=== PATIENT | male | born 1985 | race Two or more races ===

== ENCOUNTER 2017-05-07 13:46 | Inpatient (IN) | payer OTHER ==
[2017-05-07 17:21] VITALS: BMI 21.9
--- NOTE | 2017-05-07 20:47 | HP ---
Admission ROS [facility] - [facility] Chief Complaint: I WANT TO GO TO REHAB Allergies/Adverse Reactions: Allergies Allergy/AdvReac Type Severity Reaction Status Date / Time No Known Allergies Allergy Verified 05/07/17 18:26 History of Present Illness: 32 YEARS OLD MALE WITH LONG HISTORY OF METHAMPHETAMINE DEPENDENCE HAS ASTHMA HIV COPD NEUROPATHY ECZEMA AND BIPOLAR II IS ADMITTED TO REHAB Exam Limitations: No Limitations - Ebola screening Have you traveled outside of the country in the last 21 days: No Have you had contact with anyone from an Ebola affected area: No Have you been sick,other than usual withdrawal symptoms: No Do you have a fever: No - Review of Systems Constitutional: Loss of Appetite, Unintentional Wgt. Loss, Unexplained wgt Loss EENT: reports: No Symptoms Reported Respiratory: reports: SOB with Exertion, Productive cough (WHITE) GI: reports: No Symptoms Reported : reports: No Symptoms Reported Musculoskeletal: reports: Joint Pain (BOTH HANDS) Integumentary: reports: Change in Color (BOTH INNER ELBOWS) Neuro: reports: No Symptoms reported Endocrine: reports: No Symptoms Reported Hematology: reports: No Symptoms Reported Psychiatric: reports: Judgement Intact, Orientated x3, Anxious, Depressed Other Systems: Reviewed and Negative Patient History - Patient Medical History Hx Anemia: Yes Hx Asthma: Yes Hx Chronic Obstructive Pulmonary Disease (COPD): Yes Hx Cancer: No Hx Cardiac Disorders: No Hx Congestive Heart Failure: No Hx Hypertension: No Hx Hypercholesterolemia: No Hx Pacemaker: No HX Cerebrovascular Accident: No Hx Seizures: No Hx Dementia: No Hx Diabetes: No Hx Gastrointestinal Disorders: No Hx Liver Disease: No Hx Genitourinary Disorders: No Hx Sexually Transmitted Disorders: No Hx Renal Disease (ESRD): No Hx Thyroid Disease: No Hx Human Immunodeficiency Virus (HIV): Yes Hx Hepatitis C: No Hx Depression: No Hx Suicide Attempt: No Hx Bipolar Disorder: Yes Hx Schizophrenia: No - Patient Surgical History Past Surgical History: Yes Hx Neurologic Surgery: No Hx Cataract Extraction: No Hx Cardiac Surgery: No Hx Lung Surgery: No Hx Breast Surgery: No Hx Breast Biopsy: No Hx Abdominal Surgery: No Hx Appendectomy: No Hx Cholecystectomy: No Hx Genitourinary Surgery: No Hx Orthopedic Surgery: Yes (2012 RIGHT ANKLE FX) Anesthesia Reaction: No - PPD History Previous Implant?: Yes Documented Results: Negative w/o proof Implanted On Prior [facility] Admission?: No PPD to be Administered?: Yes - Smoking Cessation Smoking history: Never smoked Have you smoked in the past 12 months: No Hx Chewing Tobacco Use: No Initiated information on smoking cessation: No - Substance & Tx. History Hx Alcohol Use: No Hx Substance Use: Yes Substance Use Type: None Hx Substance Use Treatment: No ([facility]) - Substances Abused Methamphetamine Route: Injection Frequency: Daily Amount used: 2 G Age of first use: 28 Date of Last Use: 05/06/17 Family Disease History - Family Disease History Family Disease History: Other: Father (NO CONTACT) Admission Physical Exam [facility] - Vital Signs Vital Signs: Vital Signs - 24 hr 05/07/17 17:16 Temperature 98.8 F Pulse Rate 99 H Respiratory 18 Rate Blood Pressure 125/80 - Physical General Appearance: Yes: No Apparent Distress, Appropriately Dressed, Thin HEENTM: Yes: Hearing grossly Normal, Normal ENT Inspection, Normocephalic, Normal Voice Respiratory: Yes: Chest Non-Tender, No Respiratory Distress, No Accessory Muscle Use, Wheezing, Hyperresonant Neck: Yes: Supple, Trachea in good position Breast: Yes: Breasts Symetrical Cardiology: Yes: Regular Rhythm, S1, S2, Tachycardia Abdominal: Yes: Normal Bowel Sounds, Non Tender, Soft Genitourinary: Yes: Within Normal Limits Back: Yes: Normal Inspection Musculoskeletal: Yes: full range of Motion, Gait Steady Extremities: Yes: Normal Inspection, Normal Range of Motion, Non-Tender Neurological: Yes: Fully Oriented, Alert, Motor Strength 5/5, Normal Response, Depressed Affect Integumentary: Yes: Warm, Track Hoyt Lymphatic: Yes: Within Normal Limits - Diagnostic (1) Amphetamine addiction Current Visit: Yes Status: Acute (2) Methamphetamine addiction Current Visit: Yes Status: Acute (3) Ecstasy use disorder, severe, in controlled environment, dependence Current Visit: Yes Status: Acute (4) Asthma Current Visit: Yes Status: Chronic Qualifiers: Asthma severity: moderate Asthma persistence: persistent Asthma complication type: with status asthmaticus Qualified Code(s): J45.42 - Moderate persistent asthma with status asthmaticus (5) HIV (human immunodeficiency virus infection) Current Visit: Yes Status: Chronic Comment: NO MEDICATION WITH HIM UPON ADMISSION NONE COMPLIANCE WITH MEDICATION (6) Allergic Current Visit: Yes Status: Chronic Qualifiers: Encounter type: sequela Qualified Code(s): T78.40XS - Allergy, unspecified , sequela (7) Weight loss Current Visit: Yes Status: Acute (8) Herpes simplex Current Visit: Yes Status: Chronic (9) Bipolar II disorder Current Visit: Yes Status: Suspected Cleared for Admission [facility] - Detox or Rehab [facility] Level of Care: Observation Bed Detox Regimen/Protocol: Not Applicable Claeared for Rehab Admission: Yes [facility] Breath Alcohol Content Breath Alcohol Content: 0 Urine Drug Screen - Control Is Test Valid: Yes - Results Drug Screen Negative: No Urine Drug Screen Results: AMP-Amphetamines, MET-Methamphetamine, MDMA-Ecstasy Inpatient Rehab Admission - Initial Determination Are CD services needed?: Yes Free of communicable disease: Yes Not in need of hospitalization: Yes - Rehab Admission Criteria Previous failed treatment: Yes Poor recovery environment: Yes Comorbidities: Yes Lacks judgement: No Patient is meeting Inpatient Rehab admission criteria:: Yes
[2017-05-07] MEDS ORDERED: MENTHOL/PHENOL 1 EACH UD MM PRN (21:06)
[2017-05-07] MEDS ORDERED: LOPERAMIDE HCL 2 MG CAPSULE PO PRN (21:06)
[2017-05-07] MEDS ORDERED: P-EPHED 60MG/TRIPROLIDI 2.5MG TABLET PO PRN (21:06)
[2017-05-07] MEDS ORDERED: MAGNESIUM CITRATE 300 ML BOTTLE PO PRN (21:06)
[2017-05-07] MEDS ORDERED: guaiFENesin/D-METHORPHAN HB 10 ML UNIT-DOSE CUPS PO PRN (21:06)
[2017-05-07] MEDS ORDERED: IBUPROFEN 400 MG TABLET (FP) PO PRN (21:06)
[2017-05-07] MEDS ORDERED: ACETAMINOPHEN 325 MG TABLET (FP) PO PRN (21:06)
[2017-05-07] MEDS ORDERED: MAGNESIUM HYDROX 2400MG/30ML ORAL SUSPENSION 30 ML CUP PO PRN (21:06)
[2017-05-07] MEDS ORDERED: MAG HYDROX/AL HYDROX/SIMETH 30 ML UNIT-DOSE CUP PO PRN (21:06)
[2017-05-07] MEDS ORDERED: PREGABALIN 75 MG CAPSULE PO PRN (21:07)
[2017-05-07] MEDS ORDERED: ALBUTEROL SO4 0.083% IH SOL 2.5 MG/3 ML VIAL.NEB. NEB PRN (21:14)
[2017-05-07] MEDS ORDERED: valACYclovir HCL 1000 MG TABLET PO SCH (21:15)
[2017-05-07 23:02] LABS: URINE APPEARANCE CLEAR; URINE BILIRUBIN NEGATIVE (NEGATIVE); URINE BLOOD NEGATIVE (NEGATIVE); URINE COLOR YELLOW; URINE GLUCOSE (UA) NEGATIVE (NEGATIVE); URINE KETONE NEGATIVE (NEGATIVE); URINE LEUK ESTERASE NEGATIVE (NEGATIVE); URINE NITRITE NEGATIVE (NEGATIVE); URINE PROTEIN NEGATIVE (NEGATIVE); URINE UROBILINOGEN NEGATIVE mg/dL (0.2-1.0)
[2017-05-07] MEDS: valACYclovir HCL 500 MG TABLET (FP) PO SCH (23:10)
[2017-05-07] MEDS: THIAMINE HCL 100 MG TABLET (FP) PO SCH (23:11)
[2017-05-07] MEDS: LORATADINE 10 MG TABLET PO SCH (23:11)
--- NOTE | 2017-05-07 23:44 | PN ---
[facility] Progress Note Note: Psychiatry Attending's on-call note : Informed of patient's arrival on the unit. Admission from [facility].Report read.Spoke to patient. Asked by nurse to enter order for trazodone. Suspicion of past history of priapism (?). Mr Dent reports occurrence of erectile issues. Described as erection of extended duration. Trazodone NOT resumed. Unit psychiatrist will advise in AM. Discussed with nurse on duty. Patient agrees with decision.
[2017-05-08] MEDS: TRIAMCINOLONE ACET 0.1% OINT 15 GM TUBE TP SCH ×4 (00:28→21:59)
[2017-05-08] MEDS: BUDESONIDE/FORMETEROL FUMARATE 160/4.5 mcg INHALER IH SCH ×3 (00:28→22:01)
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
[2017-05-08 10:08] LABS: HEMATOCRIT 35.2 % (35.4-49); HEMOGLOBIN 10.6 GM/dL (11.7-16.9); MCH 21.9 pg (25.7-33.7); MCHC 30.2 g/dl (32.0-35.9); MEAN CELL VOLUME 72.7 fl (80-96); PLATELET COUNT 267 K/MM3 (134-434); RBC 4.85 M/mm3 (4.00-5.60); RDW 25.5 % (11.9-15.9); WHITE BLOOD COUNT 10.6 K/mm3 (4.0-10.0)
[2017-05-08 10:17] LABS: ALBUMIN 3.7 g/dl (3.4-5.0); ALK PHOS 92 U/L (45-117); ANION GAP 12 (8-16); BILIRUBIN,TOTAL 0.3 mg/dL (0.2-1.0); BLOOD UREA NITROGEN 7 mg/dL (7-18); CALCIUM 9.2 mg/dL (8.5-10.1); CHLORIDE 102 mmol/L (98-107); CO2 27 mmol/L (21-32); CREATININE 1.1 mg/dL (0.7-1.3); GLUCOSE,RANDOM 73 mg/dL (74-106); POTASSIUM 3.7 mmol/L (3.5-5.1); SGOT/AST 25 U/L (15-37); SGPT/ALT 22 U/L (12-78); SODIUM 141 mmol/L (136-145); TOT PROT 8.5 g/dl (6.4-8.2)
[2017-05-08] MEDS: PRENATAL VITAMINS W/ FOLIC ACID TABLET (FP) PO SCH (10:26)
[2017-05-08] MEDS: valACYclovir HCL 500 MG TABLET (FP) PO SCH (10:26)
[2017-05-08] MEDS: LITHIUM CARBONATE 150 MG CAPSULE PO SCH ×2 (10:41→22:00)
[2017-05-08] MEDS: LORATADINE 10 MG TABLET PO SCH (22:00)
[2017-05-08] MEDS: SUVOREXANT 10 MG TABLET PO PRN (22:00)
[2017-05-08] MEDS: THIAMINE HCL 100 MG TABLET (FP) PO SCH (22:01)
[2017-05-09] MEDS: TRIAMCINOLONE ACET 0.1% OINT 15 GM TUBE TP SCH ×3 (06:35→21:42)
[2017-05-09] MEDS: BUDESONIDE/FORMETEROL FUMARATE 160/4.5 mcg INHALER IH SCH ×2 (10:10→21:42)
[2017-05-09] MEDS: PRENATAL VITAMINS W/ FOLIC ACID TABLET (FP) PO SCH (10:11)
[2017-05-09] MEDS: LITHIUM CARBONATE 150 MG CAPSULE PO SCH ×2 (10:11→21:42)
[2017-05-09] MEDS: valACYclovir HCL 500 MG TABLET (FP) PO SCH (10:11)
[2017-05-09 11:24] LABS: RPR REACTIVE 1:2 (NONREACTIVE)
[2017-05-09 14:26] LABS: TREPONEMA ANTIBODY REACTIVE (NONREACTIVE)
--- NOTE | 2017-05-09 17:11 | EKG ---
Test Reason : Blood Pressure : / mmHG Vent. Rate : 090 BPM Atrial Rate : 090 BPM P-R Int : 126 ms QRS Dur : 088 ms QT Int : 346 ms P-R-T Axes : 075 075 055 degrees QTc Int : 423 ms NORMAL SINUS RHYTHM MODERATE VOLTAGE CRITERIA FOR LVH, MAY BE NORMAL VARIANT BORDERLINE ECG NO PREVIOUS ECGS AVAILABLE Confirmed by ZHAO KELLY MD ([id number]) on 05/09/2017 5:10:30 PM Referred By: Confirmed By:ZHAO KELLY MD
[2017-05-09] MEDS: THIAMINE HCL 100 MG TABLET (FP) PO SCH (21:41)
[2017-05-09] MEDS: LORATADINE 10 MG TABLET PO SCH (21:42)
[2017-05-09] MEDS: SUVOREXANT 10 MG TABLET PO PRN (21:44)
[2017-05-10] MEDS: TRIAMCINOLONE ACET 0.1% OINT 15 GM TUBE TP SCH ×3 (06:23→21:48)
[2017-05-10] MEDS: BUDESONIDE/FORMETEROL FUMARATE 160/4.5 mcg INHALER IH SCH ×2 (09:55→21:48)
[2017-05-10] MEDS: PRENATAL VITAMINS W/ FOLIC ACID TABLET (FP) PO SCH (09:55)
[2017-05-10] MEDS: valACYclovir HCL 500 MG TABLET (FP) PO SCH (09:56)
[2017-05-10] MEDS: LITHIUM CARBONATE 150 MG CAPSULE PO SCH ×2 (09:56→21:48)
[2017-05-10] MEDS: SUVOREXANT 10 MG TABLET PO PRN (21:48)
[2017-05-10] MEDS: LORATADINE 10 MG TABLET PO SCH (21:48)
[2017-05-10] MEDS: THIAMINE HCL 100 MG TABLET (FP) PO SCH (21:48)
[2017-05-11] MEDS: TRIAMCINOLONE ACET 0.1% OINT 15 GM TUBE TP SCH (06:21)
[2017-05-11] MEDS: LITHIUM CARBONATE 150 MG CAPSULE PO SCH (09:27)
[2017-05-11] MEDS: PRENATAL VITAMINS W/ FOLIC ACID TABLET (FP) PO SCH (09:27)
[2017-05-11] MEDS: valACYclovir HCL 500 MG TABLET (FP) PO SCH (09:27)
[2017-05-11] MEDS: BUDESONIDE/FORMETEROL FUMARATE 160/4.5 mcg INHALER IH SCH (09:28)
[2017-05-11] MEDS: ALBUTEROL SO4 18 GM HFA INHALER IH PRN (09:29)
[2017-05-11] MEDS ORDERED: PT OWN MED DRAWER 7, Y5N ONE (20:01)
[2017-05-12] MEDS: TRIAMCINOLONE ACET 0.1% OINT 15 GM TUBE TP SCH ×4 (06:17→21:23)
[2017-05-12] MEDS: PRENATAL VITAMINS W/ FOLIC ACID TABLET (FP) PO SCH (09:47)
[2017-05-12] MEDS: valACYclovir HCL 500 MG TABLET (FP) PO SCH (09:48)
[2017-05-12] MEDS: LITHIUM CARBONATE 150 MG CAPSULE PO SCH ×3 (09:48→21:22)
[2017-05-12] MEDS: BUDESONIDE/FORMETEROL FUMARATE 160/4.5 mcg INHALER IH SCH ×3 (09:49→21:21)
[2017-05-12] MEDS: ALBUTEROL SO4 18 GM HFA INHALER IH PRN (09:51)
[2017-05-12] MEDS: LORATADINE 10 MG TABLET PO SCH ×2 (18:42→21:22)
[2017-05-12] MEDS: THIAMINE HCL 100 MG TABLET (FP) PO SCH ×2 (18:43→21:23)
[2017-05-13] MEDS: TRIAMCINOLONE ACET 0.1% OINT 15 GM TUBE TP SCH ×3 (06:30→21:50)
[2017-05-13] MEDS: BUDESONIDE/FORMETEROL FUMARATE 160/4.5 mcg INHALER IH SCH ×2 (10:07→21:49)
[2017-05-13] MEDS: valACYclovir HCL 500 MG TABLET (FP) PO SCH (10:08)
[2017-05-13] MEDS: PRENATAL VITAMINS W/ FOLIC ACID TABLET (FP) PO SCH (10:08)
[2017-05-13] MEDS: LITHIUM CARBONATE 150 MG CAPSULE PO SCH ×2 (10:08→21:49)
--- NOTE | 2017-05-13 14:28 | PN ---
[facility] Progress Note Note: pt with hiv , + rpr, mhatp 1:2 ; treated with PCN 1year .
[2017-05-13] MEDS: THIAMINE HCL 100 MG TABLET (FP) PO SCH (21:49)
[2017-05-13] MEDS: LORATADINE 10 MG TABLET PO SCH (21:49)
[2017-05-14] MEDS: TRIAMCINOLONE ACET 0.1% OINT 15 GM TUBE TP SCH ×3 (06:23→21:45)
[2017-05-14] MEDS: BUDESONIDE/FORMETEROL FUMARATE 160/4.5 mcg INHALER IH SCH ×2 (10:17→21:45)
[2017-05-14] MEDS: PRENATAL VITAMINS W/ FOLIC ACID TABLET (FP) PO SCH (10:17)
[2017-05-14] MEDS: valACYclovir HCL 500 MG TABLET (FP) PO SCH (10:18)
[2017-05-14] MEDS: LITHIUM CARBONATE 150 MG CAPSULE PO SCH ×2 (10:18→21:42)
[2017-05-14] MEDS: THIAMINE HCL 100 MG TABLET (FP) PO SCH (21:42)
[2017-05-14] MEDS: LORATADINE 10 MG TABLET PO SCH (21:42)
[2017-05-14] MEDS: SUVOREXANT 10 MG TABLET PO PRN (21:44)
[2017-05-15] MEDS: TRIAMCINOLONE ACET 0.1% OINT 15 GM TUBE TP SCH ×3 (06:42→21:41)
[2017-05-15] MEDS: valACYclovir HCL 500 MG TABLET (FP) PO SCH (10:36)
[2017-05-15] MEDS: PRENATAL VITAMINS W/ FOLIC ACID TABLET (FP) PO SCH (10:36)
[2017-05-15] MEDS: BUDESONIDE/FORMETEROL FUMARATE 160/4.5 mcg INHALER IH SCH ×2 (10:36→21:40)
[2017-05-15] MEDS: LITHIUM CARBONATE 150 MG CAPSULE PO SCH ×2 (10:36→21:41)
[2017-05-15] MEDS: LORATADINE 10 MG TABLET PO SCH (21:41)
[2017-05-15] MEDS: THIAMINE HCL 100 MG TABLET (FP) PO SCH (21:41)
[2017-05-16] MEDS: TRIAMCINOLONE ACET 0.1% OINT 15 GM TUBE TP SCH ×3 (06:22→21:24)
[2017-05-16] MEDS: LITHIUM CARBONATE 150 MG CAPSULE PO SCH ×2 (10:14→21:25)
[2017-05-16] MEDS: BUDESONIDE/FORMETEROL FUMARATE 160/4.5 mcg INHALER IH SCH ×2 (10:14→21:24)
[2017-05-16] MEDS: PRENATAL VITAMINS W/ FOLIC ACID TABLET (FP) PO SCH (10:14)
[2017-05-16] MEDS: valACYclovir HCL 500 MG TABLET (FP) PO SCH (10:15)
[2017-05-16] MEDS: LORATADINE 10 MG TABLET PO SCH (21:25)
[2017-05-16] MEDS: THIAMINE HCL 100 MG TABLET (FP) PO SCH (21:25)
[2017-05-16] MEDS: SUVOREXANT 10 MG TABLET PO PRN (22:09)
[2017-05-17] MEDS: TRIAMCINOLONE ACET 0.1% OINT 15 GM TUBE TP SCH ×3 (06:09→21:47)
[2017-05-17] MEDS: ALBUTEROL SO4 18 GM HFA INHALER IH PRN ×2 (06:09→10:16)
[2017-05-17] MEDS: BUDESONIDE/FORMETEROL FUMARATE 160/4.5 mcg INHALER IH SCH ×2 (10:14→21:45)
[2017-05-17] MEDS: valACYclovir HCL 500 MG TABLET (FP) PO SCH (10:14)
[2017-05-17] MEDS: LITHIUM CARBONATE 150 MG CAPSULE PO SCH ×2 (10:14→21:46)
[2017-05-17] MEDS: PRENATAL VITAMINS W/ FOLIC ACID TABLET (FP) PO SCH (10:14)
[2017-05-17] MEDS: THIAMINE HCL 100 MG TABLET (FP) PO SCH (21:46)
[2017-05-17] MEDS: LORATADINE 10 MG TABLET PO SCH (21:46)
[2017-05-18] MEDS: TRIAMCINOLONE ACET 0.1% OINT 15 GM TUBE TP SCH ×3 (05:55→22:07)
[2017-05-18] MEDS: PRENATAL VITAMINS W/ FOLIC ACID TABLET (FP) PO SCH (10:03)
[2017-05-18] MEDS: valACYclovir HCL 500 MG TABLET (FP) PO SCH (10:03)
[2017-05-18] MEDS: BUDESONIDE/FORMETEROL FUMARATE 160/4.5 mcg INHALER IH SCH ×2 (10:03→22:06)
[2017-05-18] MEDS: LITHIUM CARBONATE 150 MG CAPSULE PO SCH ×2 (10:03→22:07)
[2017-05-18] MEDS: LORATADINE 10 MG TABLET PO SCH (22:07)
[2017-05-18] MEDS: THIAMINE HCL 100 MG TABLET (FP) PO SCH (22:07)
[2017-05-18] MEDS: SUVOREXANT 10 MG TABLET PO PRN (22:07)
[2017-05-19] MEDS: TRIAMCINOLONE ACET 0.1% OINT 15 GM TUBE TP SCH ×3 (06:28→21:34)
[2017-05-19] MEDS: PRENATAL VITAMINS W/ FOLIC ACID TABLET (FP) PO SCH (10:21)
[2017-05-19] MEDS: LITHIUM CARBONATE 150 MG CAPSULE PO SCH ×2 (10:21→21:33)
[2017-05-19] MEDS: BUDESONIDE/FORMETEROL FUMARATE 160/4.5 mcg INHALER IH SCH ×2 (10:22→21:34)
[2017-05-19] MEDS: valACYclovir HCL 500 MG TABLET (FP) PO SCH (10:22)
[2017-05-19] MEDS: SUVOREXANT 10 MG TABLET PO PRN (21:33)
[2017-05-19] MEDS: LORATADINE 10 MG TABLET PO SCH (21:33)
[2017-05-19] MEDS: THIAMINE HCL 100 MG TABLET (FP) PO SCH (21:33)
[2017-05-19] MEDS: ALBUTEROL SO4 18 GM HFA INHALER IH PRN (21:36)
[2017-05-20] MEDS: TRIAMCINOLONE ACET 0.1% OINT 15 GM TUBE TP SCH ×3 (06:01→21:26)
[2017-05-20] MEDS: valACYclovir HCL 500 MG TABLET (FP) PO SCH (10:17)
[2017-05-20] MEDS: LITHIUM CARBONATE 150 MG CAPSULE PO SCH ×2 (10:17→21:27)
[2017-05-20] MEDS: PRENATAL VITAMINS W/ FOLIC ACID TABLET (FP) PO SCH (10:17)
[2017-05-20] MEDS: BUDESONIDE/FORMETEROL FUMARATE 160/4.5 mcg INHALER IH SCH ×2 (10:17→21:26)
--- NOTE | 2017-05-20 13:39 | PN ---
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, Eczema were medically managed Current Medications: Active Medications Generic Name Dose Route Start Last Admin Trade Name Freq PRN Reason Stop Dose Admin Acetaminophen 650 mg 05/07/17 21:06 Tylenol - PO Q4H PRN FEVER Al Hydroxide/Mg Hydroxide 30 ml 05/07/17 21:06 Mylanta Oral Suspension - PO Q6H PRN DYSPEPSIA Albuterol Sulfate 2 puff 05/07/17 21:07 05/19/17 21:36 Ventolin Hfa Inhaler - IH 2 inh QID PRN Administration ASTHMA Budesonide/Formoterol Fumarate 1 puff 05/07/17 22:00 05/20/17 10:17 Symbicort 160/4.5mcg - IH 1 puff BID DEMOND Administration Bupropion HCl 150 mg 05/08/17 10:48 05/20/17 10:17 Wellbutrin Xl - PO 150 mg DAILY DEMOND Administration Eucalyptus/Menthol/Phenol/Sorbitol 1 each 05/07/17 21:06 Cepastat Lozenge - MM Q4H PRN SORE THROAT Guaifenesin 10 ml 05/07/17 21:06 Robitussin Dm - PO Q6H PRN COUGH Ibuprofen 400 mg 05/07/17 21:06 Motrin - PO Q6H PRN Pain level 4-6 [place] Carbonate 150 mg 05/08/17 10:30 05/20/17 10:17 Eskalith - PO 150 mg BID DEMOND Administration Loperamide HCl 4 mg 05/07/17 21:06 Imodium - PO Q6H PRN DIARRHEA Loratadine 10 mg 05/07/17 22:00 05/19/17 21:33 Claritin - PO 10 mg HS DEMOND Administration Magnesium Citrate 300 ml 05/07/17 21:06 Citroma - PO Q48H PRN CONSTIPATION Magnesium Hydroxide 30 ml 05/07/17 21:06 Milk Of Magnesia - PO DAILY PRN CONSTIPATION Multivit/Folic Acid/Iron 1 tab 05/08/17 10:00 05/20/17 10:17 Vitamins ([facility]) - PO 1 tab DAILY DEMOND Administration Pseudoephedrine/Triprolidine 1 combo 05/07/17 21:06 Actifed - PO TID PRN NASAL CONGESTION Thiamine HCl 100 mg 05/07/17 22:00 05/19/17 21:33 Vitamin B1 - PO 100 mg HS DEMOND Administration Triamcinolone Acetonide 1 applic 05/07/17 22:00 05/20/17 06:01 Aristocort 0.1% Ointment - TP 1 applic TID DEMOND Administration Valacyclovir HCl 1,000 mg 05/07/17 21:30 05/20/17 10:17 Valtrex - PO 1,000 mg DAILY DEMOND Administration Current Side Effect: No Lab tests ordered: Yes ([place] serum level on 05/13/17: 0.2) Lab tests reviewed: Yes Provider note:: Patient will complete this program on 05/21/17. He has met his treatment goals and will continue to address his issues in outpatient treatment at [facility]. He verbalized understanding of the negative consequences of his addiction and from his participation in this program, he has learned the importance of establishing a sober support network in order to maintain abstinence. He responded well to Wellbutrin XL 150 mg po daily, [place] Carbonate 150 mg po BID and Belsomra 10 mg po HS prn for insomnia. Scripts for 30 days supply for Wellbutrin XL and [place] Carbonate will be electronically transmitted to [facility] at [address] [place] [address] [phone]. He is stable for discharge on 05/21/17 Total face to face time:: 35 Mental Status Exam - Mental Status Exam Alert and Oriented to: Time, Place, Person Cognitive Function: Fair Patient Appearance: Well Groomed Mood: Hopeful, Euthymic Affect: Appropriate Patient Behavior: Cooperative Speech Pattern: Clear Voice Loudness: Normal Thought Process: Intact, Goal Oriented Thought Disorder: Not Present Hallucinations: Denies Suicidal Ideation: Denies Homicidal Ideation: Denies Insight/Judgement: Good Appetite: Good Muscle strength/Tone: Normal Gait/Station: Normal Psychiatric Treatment Plan - Problem List (1) Amphetamine dependence Current Visit: Yes (2) Bipolar disorder Current Visit: Yes (3) Substance-induced anxiety disorder Current Visit: Yes (4) Substance-induced sleep disorder Current Visit: Yes (5) Asthma Current Visit: Yes Qualifiers: Asthma severity: moderate Asthma persistence: persistent Asthma complication type: with status asthmaticus Qualified Code(s): J45.42 - Moderate persistent asthma with status asthmaticus (6) HIV (human immunodeficiency virus infection) Current Visit: Yes Comment: NO MEDICATION WITH HIM UPON ADMISSION NONE COMPLIANCE WITH MEDICATION (7) Herpes simplex Current Visit: Yes (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
[2017-05-20] MEDS: SUVOREXANT 10 MG TABLET PO PRN (21:27)
[2017-05-20] MEDS: LORATADINE 10 MG TABLET PO SCH (21:27)
[2017-05-20] MEDS: THIAMINE HCL 100 MG TABLET (FP) PO SCH (21:28)
[2017-05-20] MEDS ORDERED: SUVOREXANT 10 MG TABLET PO PRN (22:00)
[2017-05-21] MEDS: TRIAMCINOLONE ACET 0.1% OINT 15 GM TUBE TP SCH (06:36)
[2017-05-21 07:05] VITALS: BP 149/80; PULSE 80; TEMP 97.7
[2017-05-21] MEDS: PRENATAL VITAMINS W/ FOLIC ACID TABLET (FP) PO SCH (09:00)
[2017-05-21] MEDS: LITHIUM CARBONATE 150 MG CAPSULE PO SCH (09:00)
[2017-05-21] MEDS: valACYclovir HCL 500 MG TABLET (FP) PO SCH (09:00)
[2017-05-21] MEDS: BUDESONIDE/FORMETEROL FUMARATE 160/4.5 mcg INHALER IH SCH (09:01)
== END 2017-05-21 09:40 | disposition home or self-care (01) | DRG 772 ==
LOC: YASAS 13:46 → Y3W 18:00
PROVIDERS: ADMIT Psychiatry & Neurology Psychiatry; ATTEND Psychiatry & Neurology Psychiatry
PROC: HZ42ZZZ Group Counseling for Substance Abuse Treatment, Cognitive-Behavioral (ICD-10-PCS; principal; 2017-05-07)
DX: F15.20 Other stimulant dependence, uncomplicated (principal); F16.20 Hallucinogen dependence, uncomplicated; F19.280 Other psychoactive substance dependence with psychoactive substance-induced anxiety disorder; F19.282 Other psychoactive substance dependence with psychoactive substance-induced sleep disorder; F31.81 Bipolar II disorder; J45.42 Moderate persistent asthma with status asthmaticus; Z21 Asymptomatic human immunodeficiency virus [HIV] infection status; G62.9 Polyneuropathy, unspecified; L30.9 Dermatitis, unspecified; B00.9 Herpesviral infection, unspecified; R00.0 Tachycardia, unspecified; Z87.898 Personal history of other specified conditions
CPT/HCPCS: 36415; 71046-TC; 80053; 80178; 81003; 85027; 86593; 86780; 93005; 93010

== ENCOUNTER 2018-11-02 17:54 | Inpatient (IN) | payer OTHER ==
[2018-11-02 19:25] VITALS: BMI 21.9
--- NOTE | 2018-11-02 21:17 | HP ---
CIWA Score - Admission Criteria [facility] Guidelines: Admission for Medically Managed Detox: Requires at least one of the followin. CIWA greater than 12 2. Seizures within the past 24 hours 3. Delirium tremens within the past 24 hours 4. Hallucinations within the past 24 hours 5. Acute intervention needed for co occurring medical disorder 6. Acute intervention needed for co occurring psychiatric disorder 7. Severe withdrawal that cannot be handled at a lower level of care (continued vomiting, continued diarrhea, abnormal vital signs) requiring intravenous medication and/or fluids 8. Admission ROS [facility] - HPI Chief Complaint: rehab from crystal meth, alcohol and marijuana use crystal meth injections- 3-4cc each, once a day, last use about 5 days, says he gets this free in his housing area and does not want to use alcohol- last use 4 days ago. shots of vodka, and wine marijuana- twice a day- calms anxiety DUR- no meds Utox; THC, ALIX- neg Allergies/Adverse Reactions: Allergies Allergy/AdvReac Type Severity Reaction Status Date / Time No Known Allergies Allergy Verified 11/02/18 19:02 History of Present Illness: 33 yo with HIV and herpes, asthma and mental health issues- has not taken meds for 1 year- for bipolar and PTSD. PCP-Koffi Massey- at [facility]. pt with URI- cough, sneezing, chills, whole body aches - Ebola screening Have you traveled outside of the country in the last 21 days: No Have you had contact with anyone from an Ebola affected area: No Do you have a fever: No - Review of Systems Constitutional: No Symptoms Reported, Chills, Fever EENT: reports: Sinus Pressure, Other (sneezing) Respiratory: reports: Cough Cardiac: reports: No Symptoms Reported GI: reports: No Symptoms Reported Musculoskeletal: reports: No Symptoms Reported Integumentary: reports: No Symptoms Reported Neuro: reports: No Symptoms reported Hematology: reports: No Symptoms Reported Psychiatric: reports: No Sypmtoms Reported Other Systems: Reviewed and Negative Patient History - Patient Medical History Hx Anemia: Yes Hx Asthma: Yes (VENTOLIN/SYMBICORT) Hx Chronic Obstructive Pulmonary Disease (COPD): No Hx Cancer: No Hx Cardiac Disorders: No Hx Congestive Heart Failure: No Hx Hypertension: No Hx Hypercholesterolemia: No Hx Pacemaker: No HX Cerebrovascular Accident: No Hx Seizures: No Hx Dementia: No Hx Diabetes: No Hx Gastrointestinal Disorders: No Hx Liver Disease: No Hx Genitourinary Disorders: No Hx Sexually Transmitted Disorders: Yes (HIV+ 2004, SYPHILLIS, GONORRHEA 2015) Hx Renal Disease (ESRD): No Hx Thyroid Disease: No Hx Human Immunodeficiency Virus (HIV): Yes Hx Hepatitis C: No Hx Depression: No Hx Suicide Attempt: No Hx Bipolar Disorder: Yes Hx Schizophrenia: No Other Medical History: neuropathy - Patient Surgical History Past Surgical History: Yes Hx Neurologic Surgery: No Hx Cataract Extraction: No Hx Cardiac Surgery: No Hx Lung Surgery: No Hx Breast Surgery: No Hx Breast Biopsy: No Hx Abdominal Surgery: No Hx Appendectomy: No Hx Cholecystectomy: No Hx Genitourinary Surgery: No Hx Orthopedic Surgery: Yes (2011 RIGHT ANKLE FX) Anesthesia Reaction: No - PPD History Date: 05/09/17 - Smoking Cessation Smoking history: Never smoked Have you smoked in the past 12 months: No Hx Chewing Tobacco Use: No Initiated information on smoking cessation: No - Substances abused Crystal meth Substance route: Injection Frequency: 3-6 times per week Amount used: 3 to 4 ml syringe- for free Age of first use: 29 Date of last use: 10/28/18 Alcohol Substance route: Oral Frequency: 1-3 times last 30 days Amount used: 3 to 4 cups of wine, jello sucks/vodka Age of first use: 20 Date of last use: 10/30/18 Marijuana/Hashish Substance route: Smoking Frequency: Daily Amount used: 2 to 3 joints Age of first use: 29 Date of last use: 11/02/18 Family Disease History - Family Disease History Family Disease History: Other: Father (NO CONTACT) Admission Physical Exam S - Vital Signs Vital Signs: Vital Signs - 24 hr 11/02/18 19:02 Temperature 100.0 F H Pulse Rate 108 H Respiratory 20 Rate Blood Pressure 131/92 - Physical General Appearance: Yes: Within Normal Limits, Thin, Sweating HEENTM: Yes: Within Normal Limits, Normocephalic, Tm's normal, Other Respiratory: Yes: Wheezing Neck: Yes: Within Normal Limits, Other (with anterior cervical tenderness) Cardiology: Yes: Within Normal Limits, Regular Rhythm, Regular Rate Abdominal: Yes: Within Normal Limits, Normal Bowel Sounds Back: Yes: Within Normal Limits, Normal Inspection Musculoskeletal: Yes: Within Normal Limits, full range of Motion, Gait Steady Extremities: Yes: Within Normal Limits Neurological: Yes: Within Normal Limits, greens planter II-XII NML intact, Fully Oriented, Alert Integumentary: Yes: Within Normal Limits, Normal Color, Dry Lymphatic: Yes: Within Normal Limits - Diagnostic (1) Amphetamine use disorder, moderate Current Visit: Yes Status: Acute (2) Amphetamine dependence Current Visit: No Status: Acute (3) Asthma Current Visit: No Status: Chronic Qualifiers: Asthma severity: moderate Asthma persistence: persistent Asthma complication type: with status asthmaticus Qualified Code(s): J45.42 - Moderate persistent asthma with status asthmaticus (4) Bipolar disorder Current Visit: No Status: Chronic (5) HIV (human immunodeficiency virus infection) Current Visit: No Status: Chronic Comment: NO MEDICATION WITH HIM UPON ADMISSION NONE COMPLIANCE WITH MEDICATION (6) Herpes simplex Current Visit: No Status: Chronic (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 Current Visit: No Status: Chronic (8) Bipolar II disorder Current Visit: No Status: Suspected Breathalyzer - Breathalyzer Breathalyzer: 0 Urine Drug Screen - Test Device Lot number: [id number] Expiration date: 08/24/20 - Control Is test valid?: Yes - Results Drug screen NEGATIVE: No Urine drug screen results: THC-Marijuana Inpatient Rehab Admission - Rehab Decision to Admit Inpatient rehab admission?: Yes - Initial Determination Are CD services needed?: Yes Free of communicable disease: Yes Not in need of hospitalization: Yes - Rehab Admission Criteria Previous failed treatment: Yes Poor recovery environment: Yes Comorbidities: Yes Lacks judgement: Yes Patient is meeting Inpatient Rehab admission criteria:: Yes (here for rehab from polysubstance use)
[2018-11-02] MEDS ORDERED: hydrOXYzine PAMOATE 25 MG CAPSULE (FP) PO PRN (21:23)
[2018-11-02] MEDS ORDERED: MENTHOL/PHENOL 1 EACH UD MM PRN (21:23)
[2018-11-02] MEDS ORDERED: guaiFENesin 200 MG/10 ML 10 ML UNIT-DOSE CUPS PO PRN (21:23)
[2018-11-02] MEDS ORDERED: IBUPROFEN 400 MG TABLET (FP) PO PRN (21:23)
[2018-11-02] MEDS ORDERED: MAGNESIUM HYDROX 2400MG/30ML ORAL SUSPENSION 30 ML CUP PO PRN (21:23)
[2018-11-02] MEDS ORDERED: MAG HYDROX/AL HYDROX/SIMETH 30 ML UNIT-DOSE CUP PO PRN (21:23)
[2018-11-02] MEDS ORDERED: MAGNESIUM CITRATE 300 ML BOTTLE PO PRN (21:23)
[2018-11-02] MEDS ORDERED: LOPERAMIDE HCL 2 MG CAPSULE PO PRN (21:23)
[2018-11-02] MEDS ORDERED: ALBUTEROL SO4 0.042% IH SOL 1.25 MG/3 ML VIAL.NEB NEB PRN (21:28)
[2018-11-02] MEDS ORDERED: GABAPENTIN 300 MG CAPSULE (FP) PO SCH (22:00)
[2018-11-02] MEDS ORDERED: PATIENT'S OWN MEDICATION (NON-FORMULARY) (Gabapentin [Gabapentin] 600 MG) PO SCH (22:00)
[2018-11-02] MEDS: GABAPENTIN 300 MG CAPSULE (FP) PO SCH (23:05)
[2018-11-02] MEDS: THIAMINE HCL 100 MG TABLET (FP) PO SCH (23:06)
[2018-11-02] MEDS: ALBUTEROL SO4 8 GM HFA INHALER IH SCH (23:06)
[2018-11-02] MEDS: NORTRIPTYLINE HCL 25 MG CAPSULE PO SCH (23:48)
[2018-11-03 00:03] LABS: URINE APPEARANCE CLEAR; URINE BILIRUBIN NEGATIVE (NEGATIVE); URINE COLOR YELLOW; URINE GLUCOSE (UA) NEGATIVE (NEGATIVE); URINE KETONE NEGATIVE (NEGATIVE); URINE LEUK ESTERASE NEGATIVE (NEGATIVE); URINE NITRITE NEGATIVE (NEGATIVE); URINE PROTEIN NEGATIVE (NEGATIVE)
[2018-11-03] MEDS: GABAPENTIN 300 MG CAPSULE (FP) PO SCH ×3 (06:26→21:49)
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
[2018-11-03] MEDS ORDERED: valACYclovir HCL 1000 MG TABLET PO SCH (10:00)
[2018-11-03] MEDS: DARUNAVIR 800 MG/COBICISTAT 150MG TABLET PO SCH (10:55)
[2018-11-03] MEDS: PRENATAL VITAMINS W/ FOLIC ACID TABLET (FP) PO SCH (10:55)
[2018-11-03] MEDS: EMTRICITABINE/TENOFOV ALAFENAM (DESCOVY) TABLET PO SCH (10:55)
[2018-11-03] MEDS: ALBUTEROL SO4 8 GM HFA INHALER IH SCH ×4 (10:56→21:51)
[2018-11-03] MEDS ORDERED: valACYclovir HCL 500 MG TABLET (FP) PO ONE (11:00)
[2018-11-03] MEDS ORDERED: BUDESONIDE/FORMETEROL FUMARATE 160/4.5 mcg INHALER IH SCH (11:00)
--- NOTE | 2018-11-03 11:57 | PN ---
[facility] Progress Note Note: Pt is a new patient admitted to [facility] yesterday. Hx of Asthma and HIV(+). Reports to this mortgage underwriter and his nurse, Ms meghana Bray that he is currently taking Descovy and Prescobix(left over from previous Rx) and was started on Biktarvy in August 2018 but "never took it". Pt states he wants to go back to his primary care after rehab to start his recommended regimen. Reports he has a medical provider Dr. Koffi Saha at [place], [place]. Reports he picked meds(Biktarvy) up from pharmacy but "I sold them for crystal meth". Vital Signs - 24 hr 11/02/18 11/02/18 11/03/18 19:02 23:32 00:51 Temperature 100.0 F H 99.9 F H Pulse Rate 108 H 105 H Respiratory 20 18 18 Rate Blood Pressure 131/92 136/70 11/03/18 11/03/18 03:37 06:52 Temperature 98.6 F Pulse Rate 104 H Respiratory 18 16 Rate Blood Pressure 122/79 Laboratory Tests 11/02/18 11/03/18 22:41 08:55 Sodium 138 Potassium 3.5 Chloride 104 Carbon Dioxide 29 Anion Gap 5 L BUN 5.9 L Creatinine 1.0 Est GFR (CKD-EPI)AfAm 113.31 Est GFR (CKD-EPI)NonAf 97.76 Random Glucose 111 H Calcium 8.7 Total Bilirubin 0.8 AST 216 H ALT 256 H Alkaline Phosphatase 87 Total Protein 7.3 Albumin 3.3 L Urine Color Yellow Urine Appearance Clear Urine pH 7.0 D Ur Specific [place] 1.010 Urine Protein Negative Urine Glucose (UA) Negative Urine Ketones Negative Urine Blood Negative Urine Nitrite Negative Urine Bilirubin Negative Urine Urobilinogen 1.0 Ur Leukocyte Esterase Negative Laboratory Tests 11/02/18 11/03/18 11/03/18 22:41 08:55 08:55 WBC 8.2 RBC 4.70 Hgb 7.8 L Hct 26.2 L D MCV 55.7 L MCH 16.5 L D MCHC 29.7 L RDW 24.2 H Plt Count 205 D MPV 9.1 Sodium 138 Potassium 3.5 Chloride 104 Carbon Dioxide 29 Anion Gap 5 L BUN 5.9 L Creatinine 1.0 Est GFR (CKD-EPI)AfAm 113.31 Est GFR (CKD-EPI)NonAf 97.76 Random Glucose 111 H Calcium 8.7 Total Bilirubin 0.8 AST 216 H ALT 256 H Alkaline Phosphatase 87 Total Protein 7.3 Albumin 3.3 L Urine Color Yellow Urine Appearance Clear Urine pH 7.0 D Ur Specific [place] 1.010 Urine Protein Negative Urine Glucose (UA) Negative Urine Ketones Negative Urine Blood Negative Urine Nitrite Negative Urine Bilirubin Negative Urine Urobilinogen 1.0 Ur Leukocyte Esterase Negative RPR Titer T.pallidum Ab ([facility]) 11/03/18 08:55 WBC RBC Hgb Hct MCV MCH MCHC RDW Plt Count MPV Sodium Potassium Chloride Carbon Dioxide Anion Gap BUN Creatinine Est GFR (CKD-EPI)AfAm Est GFR (CKD-EPI)NonAf Random Glucose Calcium Total Bilirubin AST ALT Alkaline Phosphatase Total Protein Albumin Urine Color Urine Appearance Urine pH Ur Specific [place] Urine Protein Urine Glucose (UA) Urine Ketones Urine Blood Urine Nitrite Urine Bilirubin Urine Urobilinogen Ur Leukocyte Esterase RPR Titer Reactive 1:2 H T.pallidum Ab ([facility]) Previously reactive elevated liver enzymes A:Hx Hiv+ Hx Asthma Hx Anemia Hx Herpes-on Valcyclovir Hx Vit defficiency-On weekly Vit D tx. Hx Neuropathy Hx benign Tumor Right foot Hx Bipolar Disorder Hx PTSD Plan:Psych consult today Pt will follow up with his primary care provider at [facility] to restart appropriate regimen.
[2018-11-03] MEDS ORDERED: ALBUTEROL SO4 0.083% IH SOL 2.5 MG/3 ML VIAL.NEB. NEB PRN (12:11)
[2018-11-03 12:12] LABS: HEMATOCRIT 26.2 % (35.4-49); HEMOGLOBIN 7.8 GM/dL (11.7-16.9); MCHC 29.7 g/dl (32.0-35.9); MEAN CELL VOLUME 55.7 fl (80-96); MEAN PLT VOLUME 9.1 fl (7.5-11.1); RDW 24.2 % (11.9-15.9); WHITE BLOOD COUNT 8.2 K/mm3 (4.0-10.0)
[2018-11-03 12:16] LABS: ALBUMIN 3.3 g/dl (3.4-5.0); BILIRUBIN,TOTAL 0.8 mg/dL (0.2-1); BLOOD UREA NITROGEN 5.9 mg/dL (7-18); CALCIUM 8.7 mg/dL (8.5-10.1); POTASSIUM 3.5 mmol/L (3.5-5.1); TOT PROT 7.3 g/dl (6.4-8.2)
[2018-11-03 12:40] LABS: RPR REACTIVE 1:2 (NONREACTIVE)
[2018-11-03 12:41] LABS: TREPONEMA ANTIBODY PREVIOUSLY REACTIVE (NONREACTIVE)
[2018-11-03 12:53] LABS: MCH 16.5 pg (25.7-33.7)
[2018-11-03 15:18] LABS: PLATELET COUNT 205 K/MM3 (134-434)
[2018-11-03] MEDS: FERROUS SO4 325 MG TABLET (FP) PO SCH (17:01)
[2018-11-03] MEDS: traZODone HCL 100 MG TABLET (FP) PO SCH (21:50)
[2018-11-03] MEDS: NORTRIPTYLINE HCL 25 MG CAPSULE PO SCH (21:50)
[2018-11-03] MEDS: THIAMINE HCL 100 MG TABLET (FP) PO SCH (21:51)
[2018-11-03] MEDS: BUDESONIDE/FORMETEROL FUMARATE 80/4.5 mcg INHALER IH SCH (22:08)
[2018-11-04] MEDS: GABAPENTIN 300 MG CAPSULE (FP) PO SCH ×3 (06:16→21:15)
[2018-11-04] MEDS: FERROUS SO4 325 MG TABLET (FP) PO SCH ×3 (07:04→19:19)
[2018-11-04] MEDS: valACYclovir HCL 500 MG TABLET (FP) PO SCH (10:43)
[2018-11-04] MEDS: PRENATAL VITAMINS W/ FOLIC ACID TABLET (FP) PO SCH (10:44)
[2018-11-04] MEDS: BUDESONIDE/FORMETEROL FUMARATE 80/4.5 mcg INHALER IH SCH ×2 (10:44→21:15)
[2018-11-04] MEDS: DARUNAVIR 800 MG/COBICISTAT 150MG TABLET PO SCH (10:44)
[2018-11-04] MEDS: CHOLECALCIFEROL (VIT D3) 1,000 UNIT (25 MCG) TABLET PO SCH (10:44)
[2018-11-04] MEDS: EMTRICITABINE/TENOFOV ALAFENAM (DESCOVY) TABLET PO SCH (10:44)
[2018-11-04] MEDS: ALBUTEROL SO4 8 GM HFA INHALER IH SCH ×4 (10:45→22:07)
--- NOTE | 2018-11-04 17:12 | EKG ---
Test Reason : Blood Pressure : / mmHG Vent. Rate : 099 BPM Atrial Rate : 099 BPM P-R Int : 138 ms QRS Dur : 084 ms QT Int : 330 ms P-R-T Axes : 065 064 031 degrees QTc Int : 423 ms NORMAL SINUS RHYTHM MINIMAL VOLTAGE CRITERIA FOR LVH, MAY BE NORMAL VARIANT BORDERLINE ECG WHEN COMPARED WITH ECG OF 08-MAY-2017 00:22, NO SIGNIFICANT CHANGE WAS FOUND Confirmed by MARY PASTOR, BEBETO ([id number]) on 11/04/2018 5:12:28 PM Referred By: Jose A GUILLEN Confirmed By:BEBETO HERNANDEZ MD
[2018-11-04] MEDS: NORTRIPTYLINE HCL 25 MG CAPSULE PO SCH (21:15)
[2018-11-04] MEDS: MELATONIN 5 MG TABLETS PO PRN (21:16)
[2018-11-04] MEDS: THIAMINE HCL 100 MG TABLET (FP) PO SCH (21:16)
[2018-11-04] MEDS: traZODone HCL 100 MG TABLET (FP) PO SCH (22:07)
[2018-11-05] MEDS: GABAPENTIN 300 MG CAPSULE (FP) PO SCH ×3 (06:09→21:22)
[2018-11-05] MEDS: FERROUS SO4 325 MG TABLET (FP) PO SCH ×3 (07:05→17:34)
[2018-11-05] MEDS: valACYclovir HCL 500 MG TABLET (FP) PO SCH (10:58)
[2018-11-05] MEDS: PRENATAL VITAMINS W/ FOLIC ACID TABLET (FP) PO SCH (10:59)
[2018-11-05] MEDS: EMTRICITABINE/TENOFOV ALAFENAM (DESCOVY) TABLET PO SCH (11:04)
[2018-11-05] MEDS: BUDESONIDE/FORMETEROL FUMARATE 80/4.5 mcg INHALER IH SCH ×2 (11:04→21:22)
[2018-11-05] MEDS: DARUNAVIR 800 MG/COBICISTAT 150MG TABLET PO SCH (11:07)
[2018-11-05] MEDS: ALBUTEROL SO4 8 GM HFA INHALER IH SCH ×4 (11:08→21:22)
[2018-11-05] MEDS: THIAMINE HCL 100 MG TABLET (FP) PO SCH (21:22)
[2018-11-05] MEDS: traZODone HCL 100 MG TABLET (FP) PO SCH (21:22)
[2018-11-05] MEDS: NORTRIPTYLINE HCL 25 MG CAPSULE PO SCH (22:18)
[2018-11-06] MEDS: GABAPENTIN 300 MG CAPSULE (FP) PO SCH ×3 (06:24→21:50)
[2018-11-06] MEDS: FERROUS SO4 325 MG TABLET (FP) PO SCH ×3 (07:03→17:49)
[2018-11-06] MEDS: PRENATAL VITAMINS W/ FOLIC ACID TABLET (FP) PO SCH (10:31)
[2018-11-06] MEDS: valACYclovir HCL 500 MG TABLET (FP) PO SCH (10:31)
[2018-11-06] MEDS: EMTRICITABINE/TENOFOV ALAFENAM (DESCOVY) TABLET PO SCH (10:32)
[2018-11-06] MEDS: BUDESONIDE/FORMETEROL FUMARATE 80/4.5 mcg INHALER IH SCH ×2 (10:32→21:51)
[2018-11-06] MEDS: ALBUTEROL SO4 8 GM HFA INHALER IH SCH ×4 (10:33→21:52)
[2018-11-06] MEDS: DARUNAVIR 800 MG/COBICISTAT 150MG TABLET PO SCH (10:33)
[2018-11-06] MEDS: THIAMINE HCL 100 MG TABLET (FP) PO SCH (21:50)
[2018-11-06] MEDS: NORTRIPTYLINE HCL 25 MG CAPSULE PO SCH (21:51)
[2018-11-06] MEDS: traZODone HCL 100 MG TABLET (FP) PO SCH (21:51)
[2018-11-07] MEDS: GABAPENTIN 300 MG CAPSULE (FP) PO SCH ×3 (06:24→21:48)
[2018-11-07] MEDS: FERROUS SO4 325 MG TABLET (FP) PO SCH ×3 (07:03→18:09)
[2018-11-07] MEDS: valACYclovir HCL 500 MG TABLET (FP) PO SCH (10:42)
[2018-11-07] MEDS: PRENATAL VITAMINS W/ FOLIC ACID TABLET (FP) PO SCH (10:42)
[2018-11-07] MEDS: BUDESONIDE/FORMETEROL FUMARATE 80/4.5 mcg INHALER IH SCH ×2 (10:43→21:47)
[2018-11-07] MEDS: EMTRICITABINE/TENOFOV ALAFENAM (DESCOVY) TABLET PO SCH (10:43)
[2018-11-07] MEDS: DARUNAVIR 800 MG/COBICISTAT 150MG TABLET PO SCH (10:44)
[2018-11-07] MEDS: ALBUTEROL SO4 8 GM HFA INHALER IH SCH ×4 (10:45→21:48)
[2018-11-07] MEDS: traZODone HCL 100 MG TABLET (FP) PO SCH (21:48)
[2018-11-07] MEDS: THIAMINE HCL 100 MG TABLET (FP) PO SCH (21:49)
[2018-11-07] MEDS: NORTRIPTYLINE HCL 25 MG CAPSULE PO SCH (21:49)
[2018-11-08] MEDS: GABAPENTIN 300 MG CAPSULE (FP) PO SCH ×3 (06:16→21:46)
[2018-11-08] MEDS: FERROUS SO4 325 MG TABLET (FP) PO SCH ×3 (07:24→17:52)
[2018-11-08] MEDS: PRENATAL VITAMINS W/ FOLIC ACID TABLET (FP) PO SCH (10:28)
[2018-11-08] MEDS: EMTRICITABINE/TENOFOV ALAFENAM (DESCOVY) TABLET PO SCH (10:28)
[2018-11-08] MEDS: valACYclovir HCL 500 MG TABLET (FP) PO SCH (10:28)
[2018-11-08] MEDS: DARUNAVIR 800 MG/COBICISTAT 150MG TABLET PO SCH (10:29)
[2018-11-08] MEDS: BUDESONIDE/FORMETEROL FUMARATE 80/4.5 mcg INHALER IH SCH ×2 (10:30→21:46)
[2018-11-08] MEDS: ALBUTEROL SO4 8 GM HFA INHALER IH SCH ×4 (10:35→21:47)
--- NOTE | 2018-11-08 12:20 | PN ---
[facility] Progress Note (SOAP) Subjective: PT C/O RASH ON LEFT ELBOW AND HX ECZEMA. REQUESTING CHANGE OF SOAP AND NICOTINE GUM(REPORTS SMOKING 3 CIGS/DAY). REPORTS DRY MOUTH ESPECIALLY AT NIGHT. Objective: 11/08/18 12:15 Vital Signs - 24 hr 11/08/18 11/08/18 11/08/18 00:30 03:30 06:53 Temperature 97.7 F Pulse Rate 77 Respiratory 18 18 18 Rate Blood Pressure 123/76 Laboratory Tests 11/02/18 11/03/18 11/03/18 22:41 08:55 08:55 WBC 8.2 RBC 4.70 Hgb 7.8 L Hct 26.2 L D MCV 55.7 L MCH 16.5 L D MCHC 29.7 L RDW 24.2 H Plt Count 205 D MPV 9.1 Sodium 138 Potassium 3.5 Chloride 104 Carbon Dioxide 29 Anion Gap 5 L BUN 5.9 L Creatinine 1.0 Est GFR (CKD-EPI)AfAm 113.31 Est GFR (CKD-EPI)NonAf 97.76 Random Glucose 111 H Calcium 8.7 Total Bilirubin 0.8 AST 216 H ALT 256 H Alkaline Phosphatase 87 Total Protein 7.3 Albumin 3.3 L Urine Color Yellow Urine Appearance Clear Urine pH 7.0 D Ur Specific [place] 1.010 Urine Protein Negative Urine Glucose (UA) Negative Urine Ketones Negative Urine Blood Negative Urine Nitrite Negative Urine Bilirubin Negative Urine Urobilinogen 1.0 Ur Leukocyte Esterase Negative RPR Titer T.pallidum Ab ([facility]) 11/03/18 08:55 WBC RBC Hgb Hct MCV MCH MCHC RDW Plt Count MPV Sodium Potassium Chloride Carbon Dioxide Anion Gap BUN Creatinine Est GFR (CKD-EPI)AfAm Est GFR (CKD-EPI)NonAf Random Glucose Calcium Total Bilirubin AST ALT Alkaline Phosphatase Total Protein Albumin Urine Color Urine Appearance Urine pH Ur Specific [place] Urine Protein Urine Glucose (UA) Urine Ketones Urine Blood Urine Nitrite Urine Bilirubin Urine Urobilinogen Ur Leukocyte Esterase RPR Titer Reactive 1:2 H T.pallidum Ab ([facility]) Previously reactive EXTREMITY:LEFT OUTER ELBOW WITH DRY ASHY LESION Assessment: 11/08/18 12:18 HX ECZEMA Plan: INCREASE PO FLUIDS AVEENO SOAP DAILY BATH HYDROCORTISONE 1% APPLY TO LEFT ELBOW DIRECTED. NICOTINE GUM 2 MG Q2H PRN
[2018-11-08] MEDS: HYDROCORTISONE 1% TOPICAL CREAM 30 GM TUBE TP SCH ×2 (14:49→22:00)
[2018-11-08] MEDS: NICOTINE POLACRILEX 2 MG GUM BUC PRN (14:51)
[2018-11-08] MEDS: NORTRIPTYLINE HCL 25 MG CAPSULE PO SCH (21:46)
[2018-11-08] MEDS: traZODone HCL 100 MG TABLET (FP) PO SCH (21:47)
[2018-11-08] MEDS: THIAMINE HCL 100 MG TABLET (FP) PO SCH (22:00)
[2018-11-09] MEDS: GABAPENTIN 300 MG CAPSULE (FP) PO SCH ×3 (06:03→21:52)
[2018-11-09] MEDS: NICOTINE POLACRILEX 2 MG GUM BUC PRN ×3 (06:38→21:56)
[2018-11-09] MEDS: FERROUS SO4 325 MG TABLET (FP) PO SCH ×3 (07:22→17:24)
[2018-11-09] MEDS: PRENATAL VITAMINS W/ FOLIC ACID TABLET (FP) PO SCH (10:21)
[2018-11-09] MEDS: BUDESONIDE/FORMETEROL FUMARATE 80/4.5 mcg INHALER IH SCH ×2 (10:21→21:51)
[2018-11-09] MEDS: ALBUTEROL SO4 8 GM HFA INHALER IH SCH ×4 (10:22→22:05)
[2018-11-09] MEDS: valACYclovir HCL 500 MG TABLET (FP) PO SCH (10:22)
[2018-11-09] MEDS: EMTRICITABINE/TENOFOV ALAFENAM (DESCOVY) TABLET PO SCH (10:23)
[2018-11-09] MEDS: DARUNAVIR 800 MG/COBICISTAT 150MG TABLET PO SCH (10:23)
[2018-11-09] MEDS: HYDROCORTISONE 1% TOPICAL CREAM 30 GM TUBE TP SCH ×2 (10:23→21:53)
[2018-11-09 12:20] LABS: HEMATOCRIT 29.9 % (35.4-49); HEMOGLOBIN 8.9 GM/dL (11.7-16.9); MCHC 29.6 g/dl (32.0-35.9); MEAN CELL VOLUME 60.4 fl (80-96); MEAN PLT VOLUME 9.3 fl (7.5-11.1); PLATELET COUNT 254 K/MM3 (134-434); RBC 4.95 M/mm3 (4.00-5.60); WHITE BLOOD COUNT 11.1 K/mm3 (4.0-10.0)
[2018-11-09 12:33] LABS: BILIRUBIN,TOTAL 0.3 mg/dL (0.2-1); BLOOD UREA NITROGEN 12.8 mg/dL (7-18); CALCIUM 9.3 mg/dL (8.5-10.1); POTASSIUM 4.4 mmol/L (3.5-5.1); TOT PROT 9.3 g/dl (6.4-8.2)
[2018-11-09 13:26] LABS: MCH 17.9 pg (25.7-33.7)
[2018-11-09] MEDS: THIAMINE HCL 100 MG TABLET (FP) PO SCH (21:51)
[2018-11-09] MEDS: NORTRIPTYLINE HCL 25 MG CAPSULE PO SCH (21:52)
[2018-11-09] MEDS: traZODone HCL 100 MG TABLET (FP) PO SCH (21:52)
[2018-11-09] MEDS: COLLOIDAL OATMEAL 1 BAR EACH TP PRN (21:56)
[2018-11-10] MEDS: GABAPENTIN 300 MG CAPSULE (FP) PO SCH ×3 (07:08→21:41)
[2018-11-10] MEDS: FERROUS SO4 325 MG TABLET (FP) PO SCH ×3 (07:09→17:44)
[2018-11-10] MEDS: valACYclovir HCL 500 MG TABLET (FP) PO SCH (10:34)
[2018-11-10] MEDS: PRENATAL VITAMINS W/ FOLIC ACID TABLET (FP) PO SCH (10:34)
[2018-11-10] MEDS: BUDESONIDE/FORMETEROL FUMARATE 80/4.5 mcg INHALER IH SCH ×2 (10:35→21:41)
[2018-11-10] MEDS: EMTRICITABINE/TENOFOV ALAFENAM (DESCOVY) TABLET PO SCH (10:36)
[2018-11-10] MEDS: HYDROCORTISONE 1% TOPICAL CREAM 30 GM TUBE TP SCH ×2 (10:36→21:42)
[2018-11-10] MEDS: DARUNAVIR 800 MG/COBICISTAT 150MG TABLET PO SCH (10:36)
[2018-11-10] MEDS: ALBUTEROL SO4 8 GM HFA INHALER IH SCH ×4 (10:36→21:43)
[2018-11-10] MEDS: ACETAMINOPHEN 325 MG TABLET (FP) PO PRN ×3 (10:38→21:45)
[2018-11-10] MEDS: NICOTINE POLACRILEX 2 MG GUM BUC PRN ×3 (10:40→23:10)
[2018-11-10] MEDS: P-EPHED 60MG/TRIPROLIDI 2.5MG TABLET PO PRN (17:42)
[2018-11-10] MEDS: traZODone HCL 100 MG TABLET (FP) PO SCH (21:42)
[2018-11-10] MEDS: NORTRIPTYLINE HCL 25 MG CAPSULE PO SCH (21:43)
[2018-11-10] MEDS: THIAMINE HCL 100 MG TABLET (FP) PO SCH (21:44)
[2018-11-11] MEDS: GABAPENTIN 300 MG CAPSULE (FP) PO SCH ×3 (06:17→21:57)
[2018-11-11] MEDS: ACETAMINOPHEN 325 MG TABLET (FP) PO PRN ×3 (06:19→22:00)
[2018-11-11] MEDS: NICOTINE POLACRILEX 2 MG GUM BUC PRN ×3 (06:34→22:02)
[2018-11-11] MEDS: FERROUS SO4 325 MG TABLET (FP) PO SCH ×3 (07:39→18:46)
[2018-11-11] MEDS: HYDROCORTISONE 1% TOPICAL CREAM 30 GM TUBE TP SCH ×2 (10:35→21:58)
[2018-11-11] MEDS: PRENATAL VITAMINS W/ FOLIC ACID TABLET (FP) PO SCH (10:37)
[2018-11-11] MEDS: CHOLECALCIFEROL (VIT D3) 1,000 UNIT (25 MCG) TABLET PO SCH (10:37)
[2018-11-11] MEDS: EMTRICITABINE/TENOFOV ALAFENAM (DESCOVY) TABLET PO SCH (10:38)
[2018-11-11] MEDS: DARUNAVIR 800 MG/COBICISTAT 150MG TABLET PO SCH (10:38)
[2018-11-11] MEDS: BUDESONIDE/FORMETEROL FUMARATE 80/4.5 mcg INHALER IH SCH ×2 (10:38→21:59)
[2018-11-11] MEDS: valACYclovir HCL 500 MG TABLET (FP) PO SCH (10:38)
[2018-11-11] MEDS: P-EPHED 60MG/TRIPROLIDI 2.5MG TABLET PO PRN ×2 (10:40→22:01)
[2018-11-11] MEDS: ALBUTEROL SO4 8 GM HFA INHALER IH SCH ×4 (10:40→21:59)
[2018-11-11] MEDS: NORTRIPTYLINE HCL 25 MG CAPSULE PO SCH (21:57)
[2018-11-11] MEDS: THIAMINE HCL 100 MG TABLET (FP) PO SCH (21:57)
[2018-11-11] MEDS: traZODone HCL 100 MG TABLET (FP) PO SCH (21:58)
[2018-11-12] MEDS: ACETAMINOPHEN 325 MG TABLET (FP) PO PRN ×2 (06:37→16:50)
[2018-11-12] MEDS: GABAPENTIN 300 MG CAPSULE (FP) PO SCH ×3 (06:37→21:34)
[2018-11-12] MEDS: NICOTINE POLACRILEX 2 MG GUM BUC PRN ×3 (06:41→18:33)
[2018-11-12] MEDS: FERROUS SO4 325 MG TABLET (FP) PO SCH ×3 (07:14→16:47)
[2018-11-12] MEDS: PRENATAL VITAMINS W/ FOLIC ACID TABLET (FP) PO SCH (10:23)
[2018-11-12] MEDS: valACYclovir HCL 500 MG TABLET (FP) PO SCH (10:23)
[2018-11-12] MEDS: BUDESONIDE/FORMETEROL FUMARATE 80/4.5 mcg INHALER IH SCH ×2 (10:23→21:35)
[2018-11-12] MEDS: DARUNAVIR 800 MG/COBICISTAT 150MG TABLET PO SCH (10:24)
[2018-11-12] MEDS: EMTRICITABINE/TENOFOV ALAFENAM (DESCOVY) TABLET PO SCH (10:24)
[2018-11-12] MEDS: HYDROCORTISONE 1% TOPICAL CREAM 30 GM TUBE TP SCH ×2 (10:25→21:37)
[2018-11-12] MEDS: ALBUTEROL SO4 8 GM HFA INHALER IH SCH ×4 (10:26→21:35)
[2018-11-12] MEDS: P-EPHED 60MG/TRIPROLIDI 2.5MG TABLET PO PRN (16:49)
[2018-11-12] MEDS: THIAMINE HCL 100 MG TABLET (FP) PO SCH (21:34)
[2018-11-12] MEDS: traZODone HCL 100 MG TABLET (FP) PO SCH (21:35)
[2018-11-12] MEDS: NORTRIPTYLINE HCL 25 MG CAPSULE PO SCH (21:36)
[2018-11-13] MEDS: FERROUS SO4 325 MG TABLET (FP) PO SCH ×3 (05:00→12:25)
[2018-11-13] MEDS: GABAPENTIN 300 MG CAPSULE (FP) PO SCH ×3 (06:19→21:42)
[2018-11-13] MEDS: NICOTINE POLACRILEX 2 MG GUM BUC PRN ×3 (06:20→21:44)
[2018-11-13] MEDS: ACETAMINOPHEN 325 MG TABLET (FP) PO PRN (06:20)
[2018-11-13] MEDS: P-EPHED 60MG/TRIPROLIDI 2.5MG TABLET PO PRN ×2 (06:20→16:27)
[2018-11-13] MEDS: ALBUTEROL SO4 8 GM HFA INHALER IH SCH ×4 (06:49→21:43)
[2018-11-13] MEDS: BUDESONIDE/FORMETEROL FUMARATE 80/4.5 mcg INHALER IH SCH ×2 (09:50→21:43)
[2018-11-13] MEDS: valACYclovir HCL 500 MG TABLET (FP) PO SCH (09:50)
[2018-11-13] MEDS: PRENATAL VITAMINS W/ FOLIC ACID TABLET (FP) PO SCH (09:50)
[2018-11-13] MEDS: EMTRICITABINE/TENOFOV ALAFENAM (DESCOVY) TABLET PO SCH (09:51)
[2018-11-13] MEDS: DARUNAVIR 800 MG/COBICISTAT 150MG TABLET PO SCH (09:51)
[2018-11-13] MEDS: HYDROCORTISONE 1% TOPICAL CREAM 30 GM TUBE TP SCH ×2 (09:51→21:43)
[2018-11-13] MEDS: MELATONIN 5 MG TABLETS PO PRN (21:43)
[2018-11-13] MEDS: traZODone HCL 100 MG TABLET (FP) PO SCH (21:43)
[2018-11-13] MEDS: NORTRIPTYLINE HCL 25 MG CAPSULE PO SCH (21:43)
[2018-11-13] MEDS: THIAMINE HCL 100 MG TABLET (FP) PO SCH (21:43)
[2018-11-14] MEDS: ACETAMINOPHEN 325 MG TABLET (FP) PO PRN (06:21)
[2018-11-14] MEDS: P-EPHED 60MG/TRIPROLIDI 2.5MG TABLET PO PRN (06:21)
[2018-11-14] MEDS: GABAPENTIN 300 MG CAPSULE (FP) PO SCH ×3 (06:22→21:35)
[2018-11-14] MEDS: NICOTINE POLACRILEX 2 MG GUM BUC PRN ×3 (06:23→21:38)
[2018-11-14] MEDS: FERROUS SO4 325 MG TABLET (FP) PO SCH ×3 (07:37→17:16)
[2018-11-14] MEDS: BUDESONIDE/FORMETEROL FUMARATE 80/4.5 mcg INHALER IH SCH ×2 (10:21→21:36)
[2018-11-14] MEDS: ALBUTEROL SO4 8 GM HFA INHALER IH SCH ×4 (10:21→21:37)
[2018-11-14] MEDS: HYDROCORTISONE 1% TOPICAL CREAM 30 GM TUBE TP SCH ×2 (10:22→21:36)
[2018-11-14] MEDS: EMTRICITABINE/TENOFOV ALAFENAM (DESCOVY) TABLET PO SCH (10:23)
[2018-11-14] MEDS: DARUNAVIR 800 MG/COBICISTAT 150MG TABLET PO SCH (10:23)
[2018-11-14] MEDS: valACYclovir HCL 500 MG TABLET (FP) PO SCH (10:24)
[2018-11-14] MEDS: PRENATAL VITAMINS W/ FOLIC ACID TABLET (FP) PO SCH (10:24)
[2018-11-14] MEDS: NORTRIPTYLINE HCL 25 MG CAPSULE PO SCH (21:35)
[2018-11-14] MEDS: THIAMINE HCL 100 MG TABLET (FP) PO SCH (21:35)
[2018-11-14] MEDS: traZODone HCL 100 MG TABLET (FP) PO SCH (22:07)
[2018-11-15] MEDS: GABAPENTIN 300 MG CAPSULE (FP) PO SCH ×3 (06:08→21:45)
[2018-11-15] MEDS: ACETAMINOPHEN 325 MG TABLET (FP) PO PRN (06:08)
[2018-11-15] MEDS: NICOTINE POLACRILEX 2 MG GUM BUC PRN (06:10)
[2018-11-15] MEDS: FERROUS SO4 325 MG TABLET (FP) PO SCH ×3 (07:17→17:33)
[2018-11-15] MEDS: COLLOIDAL OATMEAL 1 BAR EACH TP PRN (07:20)
[2018-11-15] MEDS: ALBUTEROL SO4 8 GM HFA INHALER IH SCH ×4 (10:03→21:46)
[2018-11-15] MEDS: valACYclovir HCL 500 MG TABLET (FP) PO SCH (10:03)
[2018-11-15] MEDS: PRENATAL VITAMINS W/ FOLIC ACID TABLET (FP) PO SCH (10:03)
[2018-11-15] MEDS: DARUNAVIR 800 MG/COBICISTAT 150MG TABLET PO SCH (10:04)
[2018-11-15] MEDS: BUDESONIDE/FORMETEROL FUMARATE 80/4.5 mcg INHALER IH SCH ×2 (10:04→21:47)
[2018-11-15] MEDS: EMTRICITABINE/TENOFOV ALAFENAM (DESCOVY) TABLET PO SCH (10:06)
[2018-11-15] MEDS: P-EPHED 60MG/TRIPROLIDI 2.5MG TABLET PO PRN ×2 (10:06→21:49)
[2018-11-15] MEDS: HYDROCORTISONE 1% TOPICAL CREAM 30 GM TUBE TP SCH ×2 (10:07→21:46)
--- NOTE | 2018-11-15 14:42 | PN ---
[facility] Progress Note Note: Patient is scheduled for discharge tomorrow. Scripts for 30 days supply of medications(Wellburtin XL 150 mg/day, Trazadone 100 mg/hs) will be electronically transmitted to [facility] at [address] [place] [phone]
[2018-11-15] MEDS: traZODone HCL 100 MG TABLET (FP) PO SCH (21:46)
[2018-11-15] MEDS: THIAMINE HCL 100 MG TABLET (FP) PO SCH (21:46)
[2018-11-15] MEDS: NORTRIPTYLINE HCL 25 MG CAPSULE PO SCH (21:49)
[2018-11-16] MEDS: ACETAMINOPHEN 325 MG TABLET (FP) PO PRN (06:36)
[2018-11-16] MEDS: GABAPENTIN 300 MG CAPSULE (FP) PO SCH (06:36)
[2018-11-16] MEDS: NICOTINE POLACRILEX 2 MG GUM BUC PRN ×2 (06:37→10:05)
[2018-11-16 07:06] VITALS: BP 132/78; PULSE 82; TEMP 97.9
[2018-11-16] MEDS: FERROUS SO4 325 MG TABLET (FP) PO SCH (07:06)
--- NOTE | 2018-11-16 08:36 | PN ---
[facility] Progress Note (SOAP) Subjective: PT ADMITTED ON 11/02/18 AND COMPLETED REHAB SCHEDULED FOR DISCHARGE TODAY. PT ATTENDED AND PARTICIPATED IN GROUPS/INDIVIDUAL REHAB ACTIVITIES. PATIENT MET WITH HIS COUNSELOR AND WAS REFERR[place] [facility] [place] CD AFTERCARE. PT HAS A PRIMARY CARE PROVIDER, DR. FLO SHERIDAN FOR MEDICAL MANAGEMENT OF COMORBID CONDITIONS. DISCUSSED WITH PATIENT AND REMINDED HIM THE NEED TO FOLLOW UP WITH DR. AYALA RE: RESTARTING BIKTARVY IF INDICATED BY HIS MEDICAL PROVIDER(SEE NOTE OF 11/03/18). PT REPORTS HE HAS OWN MEDS AT HOME AND NO NEED FOR [facility] RX. PT DENIES S/H/I. Objective: 11/16/18 09:36 Vital Signs - 24 hr 11/16/18 11/16/18 00:30 07:04 Temperature 97.9 F Pulse Rate 82 Respiratory 16 16 Rate Blood Pressure 132/78 Laboratory Tests 11/02/18 11/03/18 11/03/18 22:41 08:55 08:55 WBC 8.2 RBC 4.70 Hgb 7.8 L Hct 26.2 L D MCV 55.7 L MCH 16.5 L D MCHC 29.7 L RDW 24.2 H Plt Count 205 D MPV 9.1 Platelet Comment Sodium 138 Potassium 3.5 Chloride 104 Carbon Dioxide 29 Anion Gap 5 L BUN 5.9 L Creatinine 1.0 Est GFR (CKD-EPI)AfAm 113.31 Est GFR (CKD-EPI)NonAf 97.76 Random Glucose 111 H Calcium 8.7 Total Bilirubin 0.8 AST 216 H ALT 256 H Alkaline Phosphatase 87 Total Protein 7.3 Albumin 3.3 L Urine Color Yellow Urine Appearance Clear Urine pH 7.0 D Ur Specific [place] 1.010 Urine Protein Negative Urine Glucose (UA) Negative Urine Ketones Negative Urine Blood Negative Urine Nitrite Negative Urine Bilirubin Negative Urine Urobilinogen 1.0 Ur Leukocyte Esterase Negative RPR Titer T.pallidum Ab ([facility]) 11/03/18 11/09/18 11/09/18 08:55 08:20 08:20 WBC 11.1 H RBC 4.95 Hgb 8.9 L Hct 29.9 L MCV 60.4 L D MCH 17.9 L MCHC 29.6 L RDW 25.0 H Plt Count 254 D MPV 9.3 Platelet Comment Giant platelets Sodium 136 Potassium 4.4 Chloride 100 Carbon Dioxide 30 Anion Gap 6 L BUN 12.8 Creatinine 1.0 Est GFR (CKD-EPI)AfAm 113.31 Est GFR (CKD-EPI)NonAf 97.76 Random Glucose 80 Calcium 9.3 Total Bilirubin 0.3 AST 38 H ALT 139 H Alkaline Phosphatase 110 Total Protein 9.3 H Albumin 4.0 Urine Color Urine Appearance Urine pH Ur Specific [place] Urine Protein Urine Glucose (UA) Urine Ketones Urine Blood Urine Nitrite Urine Bilirubin Urine Urobilinogen Ur Leukocyte Esterase RPR Titer Reactive 1:2 H T.pallidum Ab ([facility]) Previously reactive COPY OF LAB GIVEN TO PATIENT IN DISCHARGE PACKAGE FOR FOLLOW UP WITH PMD. Home Medications Medication Instructions Recorded Darunavir/Cobicistat [Prezcobix 1 each PO DAILY 05/07/17 800 mg-150 mg Tablet] Emtricitabine/Tenofovir [Truvada] 1 tab PO DAILY 05/07/17 Pregabalin [Lyrica -] 50 mg PO TID 05/07/17 Albuterol Sulfate Inhaler - 1 - 2 inh PO QID #1 inhaler 05/21/17 [Ventolin Hfa Inhaler -] Budesonide/Formeterol Fumarate 1 inh PO DAILY #1 inhaler 05/21/17 [SYMBICORT 160/4.5mcg -] Valacyclovir HCl [Valtrex] 1,000 mg PO DAILY #14 tablet 05/21/17 Cholecalciferol (Vitamin D3) 5,000 unit PO WEEKLY 11/02/18 [Vitamin D3 -] Emtricitabine/Tenofov Alafenam 1 each PO DAILY 11/02/18 [Descovy 200-25 mg Tablet (Nf)] Gabapentin 600 mg PO TID 11/02/18 Nortriptyline HCl [Pamelor -] 25 mg PO HS 11/02/18 Budesonide/Formeterol Fumarate 1 inh IH BID 11/03/18 [SYMBICORT 80/4.5mcg -] Bupropion HCl [Wellbutrin Xl -] 150 mg PO DAILY #30 tab.sr.24h 11/15/18 traZODone HCL [Desyrel -] 100 mg PO HS #30 tablet 11/15/18 Assessment: 11/16/18 09:37 NAD MEDICALLY STABLE [facility] Inpatient Services Medical - Diagnosis (1) Alcohol dependence Qualifiers: Substance use status: uncomplicated Qualified Code(s): F10.20 - Alcohol dependence, uncomplicated Current Visit: Yes Status: Chronic (2) Anemia Qualifiers: Anemia type: iron deficiency Current Visit: Yes Status: Chronic (3) Cannabis dependence Current Visit: Yes Status: Chronic (4) Weight loss Current Visit: Yes Status: Acute (5) Asthma Qualifiers: Asthma severity: mild Asthma persistence: unspecified Asthma complication type: uncomplicated Qualified Code(s): J45.909 - Unspecified asthma, uncomplicated Current Visit: Yes Status: Chronic (6) Eczema Current Visit: Yes Status: Chronic (7) HIV (human immunodeficiency virus infection) Qualifiers: HIV symptom status: unspecified Qualified Code(s): B20 - Human immunodeficiency virus [HIV] disease Current Visit: Yes Status: Chronic (8) Herpes simplex Current Visit: Yes Status: Chronic (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 FOLLOW UP WITH PMD FOR MEDICAL MANAGEMENT WITHIN 1 WEEK AFTER DISCHARGE.
[2018-11-16] MEDS: PRENATAL VITAMINS W/ FOLIC ACID TABLET (FP) PO SCH (10:00)
[2018-11-16] MEDS: valACYclovir HCL 500 MG TABLET (FP) PO SCH (10:00)
[2018-11-16] MEDS: BUDESONIDE/FORMETEROL FUMARATE 80/4.5 mcg INHALER IH SCH (10:01)
[2018-11-16] MEDS: DARUNAVIR 800 MG/COBICISTAT 150MG TABLET PO SCH (10:03)
[2018-11-16] MEDS: EMTRICITABINE/TENOFOV ALAFENAM (DESCOVY) TABLET PO SCH (10:03)
[2018-11-16] MEDS: HYDROCORTISONE 1% TOPICAL CREAM 30 GM TUBE TP SCH (10:03)
[2018-11-16] MEDS: ALBUTEROL SO4 8 GM HFA INHALER IH SCH (10:04)
== END 2018-11-16 10:30 | disposition home or self-care (01) | DRG 772 ==
LOC: YASAS 17:54 → Y5N 21:45
PROVIDERS: ADMIT Neuromusculoskeletal Medicine & OMM; ATTEND Neuromusculoskeletal Medicine & OMM
PROC: HZ42ZZZ Group Counseling for Substance Abuse Treatment, Cognitive-Behavioral (ICD-10-PCS; principal; 2018-11-02)
DX: F10.20 Alcohol dependence, uncomplicated (principal); F15.20 Other stimulant dependence, uncomplicated; F12.20 Cannabis dependence, uncomplicated; F19.282 Other psychoactive substance dependence with psychoactive substance-induced sleep disorder; F43.10 Post-traumatic stress disorder, unspecified; F31.81 Bipolar II disorder; D50.9 Iron deficiency anemia, unspecified; J45.909 Unspecified asthma, uncomplicated; L30.9 Dermatitis, unspecified; R63.4 Abnormal weight loss; Z21 Asymptomatic human immunodeficiency virus [HIV] infection status; G63 Polyneuropathy in diseases classified elsewhere; B00.9 Herpesviral infection, unspecified; Z87.438 Personal history of other diseases of male genital organs
CPT/HCPCS: 36415; 80053; 81003; 85027; 86593; 86780; 93005; 93010; 94640